=== PATIENT | male | born 1955 | race Caucasian/White ===

== ENCOUNTER 2017-10-28 14:18 | Inpatient (IN) ==
[2017-10-28] MEDS ORDERED: Potassium Chloride 40 MEQ in D5% in 0.45% NACL 1,000 ML IVC SCH ×2 (14:30→15:57)
--- NOTE | 2017-10-28 14:33 | Emergency Department Note ---
Disposition Clinical Impression: Hypoglycemia, Syncope due to orthostatic hypotension, Dehydration, moderate Disposition: Transfer Short-Term Hosp Condition: Good Instructions: Dehydration (ED) Referrals: NONE,PCP [Primary Care Provider] - Forms: ED Satisfaction Letter Time of Disposition: 15:17 ( will admit for observation) Syncope HPI - General Chief Complaint: ED Syncope Stated Complaint: low blood sugar Time Seen by Provider: 10/28/17 14:29 Source: EMS Mode of arrival: EMS Limitations: no limitations Nursing Notes Reviewed: Yes Vital Signs Reviewed: Yes - History of Present Illness HPI Narrative: Patient presents to the emergency department by EMS after having a syncopal episode at home. Patient was sitting in his chair when this occurred. EMS arrival patient is Accu-Chek at bedside was 36. He was given oral glucose in route, and his blood sugar came back elevated at 136, and route to the ER patient's blood sugar bottomed out again and to 104 and he was given further glucose supplement. Here patient complains of numbness to his arms and feeling faint and felt like he is going to pass out. He is also complaining of rigors and chills. And complains of being very cold. Patient denies being a diabetic , or being on any hypoglycemic medications. Patient also reports that this morning he awakened and had a bolus cereal to each, he went outside and began cutting the yard, with his lawnmower. He reports that he was outside for at least a couple hours and had 2 bottles of water to drink, this all came about him when he went inside the house and felt faint and felt not well. Pt Subjective Complaint: loss of consciousness Onset (ago): Just [employer] Description of Event: focal shaking, other Prodromal Symptoms: vision changes, lightheaded, chest pain, palpitations, shortness of breath Context: at rest Injuries Sustained Associated with Event: none Current Symptoms: back to baseline History: none Treatments prior to arrival: glucose Associated trauma secondary to event: No - Related Data Home Medications Medication Instructions Recorded Confirmed Aspirin [Lo-Dose Aspirin EC] 81 mg PO DAILY 10/28/17 10/28/17 Atorvastatin [Lipitor] 10 mg PO HS 10/28/17 10/28/17 Metoprolol [Lopressor] 25 mg PO BID 10/28/17 10/28/17 Allergies Allergy/AdvReac Type Severity Reaction Status Date / Time No Known Allergies Allergy Verified 10/28/17 14:46 All systems ED: reviewed and negative except as stated. Musculoskeletal: Reports: back pain Neurological: Reports: weakness, numbness Past Medical History - Past Medical History Medical history: Reports: hypertension Psychiatric history: Reports: no psych history - Social History Smoking Status: Never smoker Alcohol use: Reports: occasionally Drug use: Reports: none Physical Exam - General Limitations: no limitations General appearance: alert - Head Head exam: atraumatic, normocephalic, normal inspection - Eye Eye exam: Present: normal appearance, PERRL, EOMI - Expanded Eye Exam Pupils: Left: reactive - ENT ENT exam: normal exam, normal oropharynx, mucous membranes moist - Expanded ENT Exam External ear exam: Present: normal external inspection Mouth exam: Present: normal external inspection Teeth exam: Present: normal inspection Throat exam: Present: normal inspection - Neck Neck exam: Present: normal inspection, full ROM, trachea midline - Chest Chest inspection: Present: normal inspection, symmetric chest wall rise - Respiratory Respiratory exam: Present: normal lung sounds bilaterally - Cardiovascular Cardiovascular exam: Present: regular rate, normal rhythm, normal heart sounds - Abdominal Exam Abdominal exam: Present: soft, Non-Tender. Absent: tenderness, distention, guarding, rebound, rigidity - Extremities Exam Extremities exam: Present: normal inspection, full ROM. Absent: tenderness, pedal edema - Expanded Upper Extremity Exam Shoulder exam: Present: normal inspection, full ROM Arm exam: Present: normal inspection, full ROM Elbow exam: Present: normal inspection, full ROM Forearm/Wrist exam: Present: normal inspection, full ROM Hand exam: Present: normal inspection, full ROM Vascular exam: Normal: capillary refill, radial pulse - Expanded Lower Extremity Exam Hip/Pelvis exam: Present: normal inspection, full ROM Upper leg exam: Present: normal inspection, full ROM Knee exam: Present: normal inspection, full ROM Lower leg exam: Present: normal inspection, full ROM Ankle exam: Present: normal inspection, full ROM Foot/toe exam: Present: normal inspection, full ROM Neurovascular/Tendon exam: Absent: motor deficit, sensory deficit, tendon deficit - Back Exam Back exam: Present: normal inspection, full ROM. Absent: tenderness - Neurological Exam Neurological exam: Present: alert, oriented X3 - Expanded Neurological Exam Patient oriented to: Present: person, place, time Coma Scale Eye Opening: Spontaneous Coma Scale Motor Response: Obeys Commands Coma Scale Verbal Response: Oriented Coma Scale Total: 15 - Psychiatric Psychiatric exam: Present: normal affect, normal mood - Skin Skin exam: Present: warm, dry, intact, normal color Course Vital Signs Temperature 97.7 F 10/28/17 14:20 Pulse Rate 89 10/28/17 14:20 Respiratory Rate 21 10/28/17 14:20 Blood Pressure 165/70 10/28/17 14:20 O2 Sat by Pulse Oximetry 99 10/28/17 14:20 Temperature 98.6 F 10/28/17 15:20 Pulse Rate 80 10/28/17 15:20 Respiratory Rate 21 10/28/17 14:20 Blood Pressure 104/67 10/28/17 15:20 O2 Sat by Pulse Oximetry 98 10/28/17 15:20 Oxygen Delivery Oxygen Delivery Room Air Syncope - MDM Narrative Medical decision making narrative: Labs are obtained including EKG chest x-ray, patient was started on normal saline and given a 1 L bolus, then a repeat 1 L bolus of normal saline for a total of 2 L. A regular tray of food was ordered for patient. CT of head and chest x-ray was also obtained , patient's symptoms on reexamination he was feeling better, I explained to him that I suspected that he probably has heat exhaustion, and that he was extremely dehydrated. Family was okay with patient staying here in the hospital. Patient was fine with this as well. I suspect that the IV fluids will bring down the patient's potassium, and also help improve his kidney function. - Differential Diagnosis Likely: syncope due to orthostatic hypotension, vasovagal syncope, dehydration/ metabolic disorder - Medical Records Medical records reviewed: Yes I reviewed the patient's medical records. - Lab Data Lab results reviewed: Yes I reviewed the patient's lab results. Result diagrams: 10/28/17 14:35 10/28/17 14:35 Lab Results 10/28/17 10/28/17 10/28/17 Range/Units 14:35 14:35 14:35 WBC 15.7 H (4.3-11.1) K/mcL RBC 4.66 (4.19-5.50) M/mcL Hgb 14.7 (12.9-16.9) g/dL Hct 42.3 (37.5-50.1) % MCV 90.8 (83.0-100.0) fL MCH 31.5 (28.0-33.3) pg MCHC 34.8 (31.6-35.5) g/dL RDW 13.2 (11.5-14.5) % Plt Count 325 (140-400) K/mcL MPV 10.5 (9.4-12.4) fL Immature Gran % 0.6 (0-4) % Seg Neutrophils % 78.7 % Lymphocytes % 14.8 % Monocytes % 5.3 % Eosinophils % 0.3 % Basophils % 0.3 % Neutrophils # 12.4 H (1.6-8.9) K/mcL Lymphocytes # 2.3 (0.6-4.6) K/mcL Monocytes # 0.8 (0.0-1.3) K/mcL Eosinophils # 0.1 (0.0-0.6) K/mcL Basophils # 0.1 (0.0-0.2) K/mcL PT 11.7 (9.4-12.1) Seconds INR 1.0 APTT 27.1 (26.0-36.0) Seconds Sodium 136 (136-145) mEq/L Potassium 6.4 H (3.5-5.1) mEq/L Chloride 102 (98-107) mEq/L Carbon Dioxide 21 L (23-29) mEq/L BUN 20 (8-23) mg/dL Creatinine 1.68 H (0.70-1.30) mg/dL Est GFR ( Amer) 50 L (> 60) Est GFR (Non-Af Amer) 42 L (> 60) BUN/Creatinine Ratio 12 (6-26) Glucose 115 H (70-105) mg/dL Calculated Osmolality 286 (280-300) Calcium 10.2 (8.6-10.3) mg/dL Creatine Kinase (30-223) Units/L Troponin I 0.03 (< 0.04) ng/mL Beta-Hydroxybutyric Acd (0.02-0.27) mmol/L 10/28/17 10/28/17 Range/Units 14:35 14:35 WBC (4.3-11.1) K/mcL RBC (4.19-5.50) M/mcL Hgb (12.9-16.9) g/dL Hct (37.5-50.1) % MCV (83.0-100.0) fL MCH (28.0-33.3) pg MCHC (31.6-35.5) g/dL RDW (11.5-14.5) % Plt Count (140-400) K/mcL MPV (9.4-12.4) fL Immature Gran % (0-4) % Seg Neutrophils % % Lymphocytes % % Monocytes % % Eosinophils % % Basophils % % Neutrophils # (1.6-8.9) K/mcL Lymphocytes # (0.6-4.6) K/mcL Monocytes # (0.0-1.3) K/mcL Eosinophils # (0.0-0.6) K/mcL Basophils # (0.0-0.2) K/mcL PT (9.4-12.1) Seconds INR APTT (26.0-36.0) Seconds Sodium (136-145) mEq/L Potassium (3.5-5.1) mEq/L Chloride (98-107) mEq/L Carbon Dioxide (23-29) mEq/L BUN (8-23) mg/dL Creatinine (0.70-1.30) mg/dL Est GFR ( Amer) (> 60) Est GFR (Non-Af Amer) (> 60) BUN/Creatinine Ratio (6-26) Glucose (70-105) mg/dL Calculated Osmolality (280-300) Calcium (8.6-10.3) mg/dL Creatine Kinase 63 (30-223) Units/L Troponin I (< 0.04) ng/mL Beta-Hydroxybutyric Acd 1.20 H (0.02-0.27) mmol/L - Radiology Data Radiology results reviewed: Yes I reviewed the patient's radiology results. CT of head shows no acute process chest x-ray portable shows no acute abnormality. - EKG Data EKG attestation: Yes I reviewed and interpreted this EKG. EKG results narrative: EKG shows a normal sinus rhythm EKG EKG shows normal: sinus rhythm Rate: normal Rhythm: NSR [place]/QRS: normal
[2017-10-28] MEDS ORDERED: Ondansetron 4 MG/2 ML VIAL IVP ONE (14:40)
[2017-10-28 14:43] LABS: Basophils % 0.3 %; Eosinophils % 0.3 %; Hematocrit 42.3 % (37.5-50.1); Hemoglobin 14.7 g/dL (12.9-16.9); Immature Granulocytes % 0.6 % (0-4); Lymphocytes # 2.3 K/mcL (0.6-4.6); Lymphocytes % 14.8 %; Mean Corpuscular HGB Conc 34.8 g/dL (31.6-35.5); Mean Corpuscular Hemoglobin 31.5 pg (28.0-33.3); Mean Corpuscular Volume 90.8 fL (83.0-100.0); Mean Platelet Volume 10.5 fL (9.4-12.4); Monocytes # 0.8 K/mcL (0.0-1.3); Monocytes % 5.3 %; Neutrophils # 12.4 K/mcL (1.6-8.9); Platelet Count 325 K/mcL (140-400); Red Blood Count 4.66 M/mcL (4.19-5.50); Red Cell Distribution Width 13.2 % (11.5-14.5); Segmented Neutrophils % 78.7 %
[2017-10-28 14:50] LABS: Basophils # 0.1 K/mcL (0.0-0.2); Eosinophils # 0.1 K/mcL (0.0-0.6); Prothrombin Time 11.7 Seconds (9.4-12.1)
[2017-10-28 14:52] LABS: Activated Partial Thrombo Time 27.1 Seconds (26.0-36.0)
[2017-10-28] MEDS ORDERED: 0.9 % Sodium Chloride 1,000 ML IVC ONE ×2 (14:53→15:05)
[2017-10-28 15:02] LABS: Calcium 10.2 mg/dL (8.6-10.3); Potassium 6.4 mEq/L (3.5-5.1)
[2017-10-28 15:08] LABS: Troponin I 0.03 ng/mL (< 0.04)
[2017-10-28 15:36] LABS: ABG Base Excess -3 mEq/L (-2 to 3); ABG HCO3 21 mEq/L (21-27); ABG Oxygen Saturation 96 % (95-98); ABG PCO2 35 mmHg (35-45); ABG PH 7.39 pH Units (7.32-7.45); ABG PO2 81 mmHg (85-104); ABG TCO2 22 mEq/L (20-26)
[2017-10-28] MEDS ORDERED: Aspirin Enteric Coated 81 MG Tablet PO SCH (18:00)
[2017-10-28 18:21] LABS: Bilirubin,Urine Negative (Negative); Blood,Urine Negative (Negative); Clarity,Urine Clear (Clear); Color,Urine Yellow (Yellow); Glucose,Urine (UA) Normal (Normal); Ketones,Urine 15 mg/dL (Negative); Leukocyte Esterase,Urine Negative (Negative); Nitrite,Urine Negative (Negative); Protein,Urine 30 mg/dL (Neg-Trace); Specific Gravity,Urine 1.015 (1.010-1.025); Urobilinogen,Urine Normal (Normal)
[2017-10-28 18:29] LABS: RBC,Urine 0-3 per hpf (0-3)
[2017-10-28 18:30] LABS: Bacteria,Urine Moderate per hpf (None-Few); Granular Casts,Urine Moderate per lpf (None Seen); Hyaline Casts,Urine Few per lpf (None-Few); Squamous Epithelial Cell,Urine Few per lpf (None-Few); White Blood Cell Casts,Urine Moderate per lpf (None Seen)
[2017-10-29 06:35] VITALS: BP 91/54
[2017-10-29 08:23] LABS: Basophils % 0.3 %; Eosinophils # 0.1 K/mcL (0.0-0.6); Hematocrit 34.5 % (37.5-50.1); Hemoglobin 11.7 g/dL (12.9-16.9); Immature Granulocytes % 0.3 % (0-4); Lymphocytes # 3.6 K/mcL (0.6-4.6); Lymphocytes % 31.2 %; Mean Corpuscular HGB Conc 33.9 g/dL (31.6-35.5); Mean Corpuscular Hemoglobin 31.5 pg (28.0-33.3); Mean Corpuscular Volume 92.7 fL (83.0-100.0); Mean Platelet Volume 10.9 fL (9.4-12.4); Monocytes # 0.7 K/mcL (0.0-1.3); Monocytes % 6.3 %; Platelet Count 261 K/mcL (140-400); Red Blood Count 3.72 M/mcL (4.19-5.50); Red Cell Distribution Width 13.8 % (11.5-14.5); Segmented Neutrophils % 60.9 %
[2017-10-29 08:24] LABS: BUN/Creatinine Ratio 16 (6-26); Blood Urea Nitrogen 13 mg/dL (8-23); Calcium 8.6 mg/dL (8.6-10.3); Carbon Dioxide 24 mEq/L (23-29); Chloride 107 mEq/L (98-107); Glucose 100 mg/dL (70-105); Osmolality,Calculated 286 (280-300); Potassium 4.1 mEq/L (3.5-5.1); Sodium 138 mEq/L (136-145); eGFR For African Americans > 60 (> 60); eGFR For Non-African Americans > 60 (> 60)
[2017-10-29] MEDS ORDERED: Aspirin Enteric Coated 81 MG Tablet PO SCH (09:00)
--- NOTE | 2017-10-29 11:12 | Internal Med History&Physical ---
Date of Encounter: 10/29/17 Time of Encounter: 10:50 Assessment and Plan (1) Near syncope Current visit: Yes Status: Acute Likely due to dehydration with hypoglycemia. Now resolved. He wishes to be discharged home. (2) Azotemia Current visit: Yes Status: Acute Likely due to dehydration since follow-up labs today show BUN and creatinine improved to 13 and 0.82 respectively with estimated GFR greater than 60. (3) Leukocytosis Current visit: Yes Status: Acute Now resolved with WBC 11.5 and normal differential. Qualifiers: Leukocytosis type: unspecified Qualified Code(s): D72.829 - Elevated white blood cell count, unspecified (4) Hyperkalemia Current visit: Yes Status: Acute Suspect due to acute renal insufficiency. He was given Kayexalate in emergency room. (5) Hypoglycemia Current visit: Yes Status: Acute Now resolved. Internal Medicine - H&P: HPI Chief complaint: Near syncope, acute renal failure Plans for Post Hospital Care: Home History of present illness: Mr. Tsang is a 62 year old male who came to emergency room after having a near syncopal episode at home. He reports he had been mowing and had not eaten since breakfast. He had ingested some fluids but began feeling lightheaded shortly after finishing mowing. When he did not improve after a few minutes the squad was called. He was found to have hypoglycemia. He denies vomiting diarrhea pain or dyspnea. He was evaluated in emergency room and found to have azotemia and leukocytosis. He was admitted to [facility] floor for ongoing care needs. He states he feels back to his baseline now and wishes to be discharged home. He denies previous similar episodes. Past Med Surg Social Fam HX - Past Medical History Medical history: hypertension Psychiatric history: no psych history - Social History Smoking Status: Never smoker Smokeless Tobacco Status: No Alcohol use: occasionally Drug use: none Internal Medicine - H&P: Meds Aspirin [Lo-Dose Aspirin EC] 81 mg PO QPM 10/28/17 [History] Atorvastatin [Lipitor] 10 mg PO QPM 10/28/17 [History] Metoprolol [Lopressor] 25 mg PO QPM 10/28/17 [History] 3 Allergy/AdvReac Type Severity Reaction Status Date / Time Sulfa (Sulfonamide Allergy Hives Verified 10/28/17 17:26 Antibiotics) All Systems PM: A 10-system review of systems was performed and is negative for pertinent findings except as documented above in the HPI. Review of systems: Gen.: He states his weight has been stable the past few months Cardiovascular: He has history of hypertension and paroxysmal atrial fibrillation. He is on aspirin for A. fib. He denies OH heart failure angina DVT or pulmonary embolus Respiratory: He is a lifelong nonsmoker and has no known chronic lung disease GI: He denies disorders of his liver gallbladder or exocrine pancreas : He denies hematuria dysuria or kidney stones Neurologic: He denies large distribution strokes or seizures. Endocrine: He has hyperlipidemia denies diabetes or thyroid disease Hematology/oncology: He has history of anemia. He denies internal malignancies or other blood disorders. Psychiatric: He denies anxiety depression or other mental health issues [place] skeletal: He has had arthroscopic surgery on his knee. He denies arthritis gout or other bone joint or muscle disorders. - Constitutional Vitals: Temp Pulse Resp BP Pulse Ox 99.0 F 74 14 91/54 97 10/29/17 06:30 10/29/17 06:30 10/29/17 06:30 10/29/17 06:30 10/29/17 06:30 Exam: Gen.: He is a well-developed well-nourished male who appears in no acute distress at present time HEENT: Head is atraumatic and normal cephalic. Eyes: EOMI. There is no scleral icterus. Mouth: Mucosa is moist. Neck: Supple and nontender. There is no thyromegaly or adenopathy noted. Heart: Regular without murmurs gallops or ectopics Lungs: No wheezes or crackles are heard. Abdomen: Soft and nontender. No masses or guarding are noted. Extremities: There is no cyanosis edema or clubbing noted. Dorsalis pedis and posttibial pulses are 1-2 over 2 bilaterally. Neurologic: Mental status: He is talkative and a good historian. Cranial nerves : Smile is symmetric. Forehead wrinkles bilaterally. Tongue protrudes midline. EOMI. Motor: There is no pronator drift. Cerebellar: Finger to nose is intact bilaterally. Skin: Warm and dry Internal Med - H&P Results - Labs CBC & Chem 7: 10/29/17 06:58 10/29/17 06:58 Labs: Short CBC 07/23/18 Range/Units 06:58 WBC 11.5 H (4.3-11.1) K/mcL Hgb 11.7 L D (12.9-16.9) g/dL Hct 34.5 L (37.5-50.1) % Plt Count 261 (140-400) K/mcL Neutrophils # 7.0 (1.6-8.9) K/mcL BMP 10/29/17 06:58 Sodium 138 Potassium 4.1 D Chloride 107 Carbon Dioxide 24 BUN 13 Creatinine 0.82 Glucose 100 Calcium 8.6 Urine 10/28/17 Range/Units 16:52 Urine Color Yellow (Yellow) Urine Clarity Clear (Clear) Urine pH 6.0 (5.0-8.0) pH Units Ur Specific [place] 1.015 (1.010-1.025) Urine Protein 30 H (Neg-Trace) mg/dL Urine Glucose (UA) Normal (Normal) mg/dL
--- NOTE | 2017-10-29 11:23 | Discharge Summary ---
Date of Encounter: 10/29/17 Time of Encounter: 10:50 - Discharge Diagnosis (1) Near syncope Priority: Primary Status: Resolved (2) Azotemia Priority: Secondary Status: Resolved (3) Leukocytosis Priority: Secondary Status: Resolved Qualifiers: Leukocytosis type: unspecified Qualified Code(s): D72.829 - Elevated white blood cell count, unspecified (4) Hyperkalemia Priority: Secondary Status: Resolved (5) Hypoglycemia Priority: Secondary Status: Resolved Hospital course: Mr. Tsang is a 62 year old male who came to emergency room after having a near syncopal episode at home. He reports he had been mowing and had not eaten since breakfast. He had ingested some fluids but began feeling lightheaded shortly after finishing mowing. When he did not improve after a few minutes the squad was called. He was found to have hypoglycemia. He denies vomiting diarrhea pain or dyspnea. He was evaluated in emergency room and found to have azotemia and leukocytosis. He was admitted to [facility] floor for ongoing care needs. Initial orders were written by the emergency room physician. I saw him on October 29 and performed a history and physical. He was given IV fluids. By the time I saw him he felt back to his baseline. Follow-up lab work showed WBC decreased to 11.5 with normalization of differential. Potassium improved to 4.1 and creatinine decreased to 0.82 with estimated GFR greater than 60. He felt back to his baseline and wished to be discharged home which I felt was reasonable. He will follow with his PCP in the [place] area later today. His blood pressure remained borderline low. His PCP and/or forensic identification specialist can determine if reduction of metoprolol is appropriate. - Time Spent with Patient Total time spent providing and/or coordinating discharge services: - Discharge Medications Home Medications: Aspirin [Lo-Dose Aspirin EC] 81 mg PO QPM 10/28/17 [History] Atorvastatin [Lipitor] 10 mg PO QPM 10/28/17 [History] Metoprolol [Lopressor] 25 mg PO QPM 10/28/17 [History] Allergies/Adverse Reactions: 3 Allergy/AdvReac Type Severity Reaction Status Date / Time Sulfa (Sulfonamide Allergy Hives Verified 10/28/17 17:26 Antibiotics) Date of admission: 10/28/17 15:56 Primary care physician: Phillip Locke - Constitutional Vitals: Temp Pulse Resp BP Pulse Ox 99.0 F 74 14 91/54 97 10/29/17 06:30 10/29/17 06:30 10/29/17 06:30 10/29/17 06:30 10/29/17 06:30 - Patient Status Disposition: Home, Self-Care Condition: Good Overall status at discharge: patient is progressing back to baseline - Discharge Instructions Follow Up With: Phillip Locke [Other] - 1 week - Diet and Activity Activity: resume usual activities as tolerated Diet: advance to your usual diet
--- NOTE | 2017-10-29 20:08 | Electrocardiograph Report ---
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
== END 2017-10-29 11:37 | disposition home or self-care (01) | DRG 641 ==
LOC: INPPIK 14:18 → EMEROOPIK 14:18 → OBSVTOIN 15:56 → INPPIK 16:10
PROVIDERS: ADMIT Internal Medicine; ATTEND Internal Medicine